=== PATIENT | male | born 1980 | race Caucasian/White ===

== ENCOUNTER 2017-03-11 18:21 | Emergency (ER) | payer SELFPAY ==
--- NOTE | ~2017-03-11 | ER ---
PATIENT'S NAME: MARGARETTE BURCH [facility] AGE: 36 Y [address] ROOM: [place] [id number] LOCATION: [facility] ADMIT DATE: 03/11/2017 ER/Outpatient Report DISCHARGE DATE: 03/11/2017 FAMILY PHYSICIAN: PHYSICIAN, NO ATTENDING PHYSICIAN: Yan Givens Admission date and time documented in the medical record. I saw the patient at 1833 hours. CHIEF COMPLAINT: Midabdominal pain. HISTORY OF PRESENT ILLNESS: The patient is a 36-year-old male who has had a 3-day history of midabdominal pain accompanied with nausea and vomiting. He states that he is vomiting 10 times a day. States the pain is constant, mid, generalized, sharp, nonradiating. No diarrhea. No fever, chills, or sweats. No recent coughs, colds, or flus. No chest pain or shortness of breath. No lightheadedness, dizziness, syncope, or near syncope. No fall or trauma. No headache, eyes, ears, nose, throat, neck, or spine pain. No joint or muscle swelling, redness, or pain. No skin eruptions or rash. No history of neuro changes, psych issues, or endocrine problems. Does have a history of gastritis. MEDICATIONS: Present medications include: 1. Bentyl. 2. Reglan. 3. Flexeril. 4. Trazodone. SOCIAL HISTORY: The patient smokes a pack of cigarettes per day. Nondrinker. Occasional use of marijuana. SIGNIFICANT PAST MEDICAL HISTORY: Tobacco abuse, marijuana use, and gastritis. OPERATIONS: Cholecystectomy. REVIEW OF SYSTEMS: All systems reviewed by me are negative with the exception of those discussed in the history of present illness. PHYSICAL EXAMINATION: PATIENT'S NAME: MARGARETTE BURCH [facility] AGE: 36 Y [address] ROOM: [place], [place] [id number] LOCATION: [facility] ADMIT DATE: 03/11/2017 ER/Outpatient Report DISCHARGE DATE: 03/11/2017 FAMILY PHYSICIAN: PHYSICIAN, NO ATTENDING PHYSICIAN: Yan Givens VITAL SIGNS: Temperature 97.8 tympanic, pulse 57, respirations 20, blood pressure 163/76, and O2 saturation on room air is 98%. HEAD: Normocephalic. EYES: Clear. EARS: Clear TMs bilaterally. NOSE: Clear. THROAT: Clear. Mucous membranes moist. NECK: No nuchal rigidity. No thyromegaly or cervical adenopathy. SPINE: Nontender. No deformity. LUNGS: Clear. Good air flow. No rales, rhonchi, or wheezes. HEART: Regular. Pulses are palpable. No chest wall or ribcage pain to palpation. ABDOMEN: Soft. Nondistended. Some tenderness just above the umbilicus and midabdomen. No true guarding or rigidity. No rebound tenderness. No distention. Active bowel tones. No organomegaly or abnormal mass palpable. No CVA tenderness. EXTREMITIES: Without peripheral edema, cyanosis, or deformity. NEUROVASCULAR: Intact. SKIN: Clear. No skin eruptions or rash. LABORATORY DATA: Procalcitonin was less than 0.05. Lactate was 3.6. H. pylori was negative. Urine showed 2 to 5 whites, 0 to 2 reds, 0 to 2 epithelial cells, negative bacteria, 2+ mucus, calcium oxalate present, 1+ amorphous material, negative nitrites on dipstick. CMS was normal except for a slightly low sodium of 134, slightly low potassium of 3.3, elevated glucose of 216, elevated creatinine of 1.7, and low GFR of 51. Amylase and lipase were normal. CRP was normal, less than 0.29. White count was 19,400, 83 segs, 4 lymphs, 12 monos, hemoglobin 16.9, hematocrit 47.1, and platelet count is 278,000. Pro-time is 11.2 with an INR of 1.07. IMAGING PROCEDURE: Three-way abdominal x-rays showed no perforation, obstruction, or acute lung infiltrate. We will review plain film with the radiologist. CT scan of the abdomen and pelvis without contrast because of his renal function, showed no perforation or obstruction. No free air or free fluid. Does have a left intrarenal stone and a right renal cyst. There is no hydronephrosis. No ureteral stones. No other abnormalities of the liver, spleen, pancreas, bowel, or bladder. CT scan was read by Radiology, see dictated transcribed report. EMERGENCY DEPARTMENT COURSE: I did give the patient IV normal saline, fluids, IV morphine for pain, and IV Zofran for nausea and vomiting. I did give him two 5/325 [place] orally on dismissal from the emergency department. PATIENT'S NAME: MARGARETTE BURCH [facility] AGE: 36 Y [address] ROOM: [place] [address] LOCATION: [facility] ADMIT DATE: 03/11/2017 ER/Outpatient Report DISCHARGE DATE: 03/11/2017 FAMILY PHYSICIAN: PHYSICIAN, NO ATTENDING PHYSICIAN: Yan Givens PLAN: Discharged home. Observation. Activity as tolerated. Clear liquid diet x24 hours and advance diet as tolerated. Continue present home medications and care. [place] 10/325 as needed for pain #8. Flexeril 10 mg 3 times a day #30. Reglan 10 mg 4 times a day as needed #40. Follow up with personal physician as needed. Discussion ensued with the patient concerning my findings and recommendations, he understands. There is a question whether he is drug- seeking. Did ask for Dilaudid multiple times here in the emergency department. MD JONATHAN REYES/modl /[id number] d: 03/11/172326 t: 03/12/17 1808, OUTPATIENT REPORT
[2017-03-11 19:00] LABS: BASOPHIL % 0.2 %; HEMATOCRIT 47.1 % (37.0-53.0); HEMOGLOBIN 16.9 g/dL (12.0-17.0); IMMATURE GRANULOCYTE # 0.1 K/uL (0.0-0.3); IMMATURE GRANULOCYTE % 0.4 %; LYMPHOCYTE # 0.8 K/uL (0.8-4.0); LYMPHOCYTE % 4.3 %; MCH 31.4 pg (27.0-34.0); MCHC 35.9 gm/dL (32.0-36.5); MCV 87.4 fl (83.0-98.0); MONOCYTE # 2.3 K/uL (0.0-1.0); MPV 9.7 fl (9.4-12.4); NEUTROPHIL # (ANC) 16.2 K/uL (1.4-9.0); NEUTROPHIL % 83.1 %; NRBC % 0 /100WBC (0-0.00); PLATELET COUNT 278 K/uL (150-450); RBC 5.39 M/uL (4.00-6.00); RDW-CV 12.1 % (11.9-14.6)
[2017-03-11 19:02] LABS: WBC 19.4 K/uL (4.0-11.0)
[2017-03-11 19:08] LABS: INR - (THERAPEUTIC) 1.07 (0.92-1.07); PROTIME 11.2 SECONDS (9.8-11.4)
[2017-03-11 19:20] LABS: ALBUMIN 4.6 gm/dL (3.5-5.0); ALK PHOS 117 IU/L (33-138); ALT 23 IU/L (12-78); ANION GAP 14.3 (10.0-19.0); AST 20 IU/L (10-40); BLOOD UREA NITROGEN 20 mg/dL (6-24); CALCIUM 10.4 mg/dL (8.5-10.5); CHLORIDE 101 mMol/L (96-110); CO2 22 mMol/L (22-32); CREATININE 1.7 mg/dL (0.6-1.3); POTASSIUM 3.3 mMol/L (3.7-5.1); SODIUM 134 mMol/L (135-145); TOTAL BILIRUBIN 0.7 mg/dL (0.0-1.5); TOTAL PROTEIN 8.6 g/dL (6.0-8.4)
[2017-03-11 19:35] LABS: BILIRUBIN URINE NEGATIVE (NEGATIVE); BLOOD URINE 10 /UL (NEGATIVE); COLOR URINE YELLOW (YELLOW); GLUCOSE URINE 100 mg/dL (NEGATIVE); KETONE URINE 50 mg/dL (NEGATIVE); LEUKOCYTES URINE 25 /UL (NEGATIVE); NITRITE URINE NEGATIVE (NEGATIVE); PH URINE 6.5 (4.0-8.0); PROTEIN URINE 30 mg/dL (NEGATIVE); TURBIDITY URINE CLEAR (CLEAR); UROBILINOGEN URINE 1 mg/dL (NORMAL)
[2017-03-11 19:48] LABS: BACTERIA URINE NEGATIVE (NEGATIVE); EPITHELIAL URINE 0-2 #/HPF (NEGATIVE); MUCUS URINE 2+ (NEGATIVE); RBC URINE 0-2 #/HPF (NEGATIVE)
[2017-03-11 19:49] LABS: AMORPHOUS URINE 1+ (NEGATIVE); CRYSTALS URINE CALCIUM OXALATE (NEGATIVE)
== END 2017-03-11 20:19 | disposition disaster alternative care site (69) ==
LOC: GMED 18:21
PROVIDERS: Emergency Medicine
DX: N20.0 Calculus of kidney (principal); N28.1 Cyst of kidney, acquired; R11.2 Nausea with vomiting, unspecified; K29.70 Gastritis, unspecified, without bleeding; F17.210 Nicotine dependence, cigarettes, uncomplicated; Z88.8 Allergy status to other drugs, medicaments and biological substances; Z79.899 Other long term (current) drug therapy; Z90.49 Acquired absence of other specified parts of digestive tract
CPT/HCPCS: C9113; J2270; J2405; J7030